=== PATIENT | female | born 1980 | race Caucasian/White ===

== ENCOUNTER 2018-02-16 09:24 | Day surgery (SDC) | payer OTHER ==
[2018-02-16] MEDS ORDERED: FENTAnyl 50 MCG/ML VIAL (11:10)
[2018-02-16] MEDS ORDERED: MIDAZOLAM 1 MG/ML 2 ML INJ ×2 (11:11)
== END 2018-02-16 11:21 | disposition home or self-care (01) ==
LOC: GIL 09:24
DX: K62.5 Hemorrhage of anus and rectum (principal); K64.9 Unspecified hemorrhoids; E03.9 Hypothyroidism, unspecified; Z80.0 Family history of malignant neoplasm of digestive organs
CPT/HCPCS: 45330

== ENCOUNTER 2018-06-17 08:43 | Day surgery (SDC) | payer OTHER ==
[2018-06-17] MEDS ORDERED: MIDAZOLAM 1 MG/ML 2 ML INJ ×3 (10:47→10:48)
[2018-06-17] MEDS ORDERED: FENTAnyl 50 MCG/ML VIAL (10:48)
== END 2018-06-17 11:33 | disposition home or self-care (01) ==
LOC: GIL 08:43
DX: Z12.11 Encounter for screening for malignant neoplasm of colon (principal); Z80.0 Family history of malignant neoplasm of digestive organs
CPT/HCPCS: 45378; 84703